=== PATIENT | male | born 1995 | race Caucasian/White ===

== ENCOUNTER 2017-02-19 00:59 | Emergency (ER) | payer MEDICAID ==
[~2017-02-19] VITALS: Ht 177.8 cm; Wt 83.5 kg
[2017-02-19 01:06] VITALS: Ht 177.8 cm; Wt 83.5 kg
[2017-02-19 02:16] VITALS: BP 134/81; PULSE 71; RESP 18; TEMP 98.6
--- NOTE | 2017-02-19 03:37 | ERD ---
ER Documentation Chief Complaint Chief Complaint abd pain right lower right quad x 2 days. HPI Patient is a 21-year-old male who presents with gradual onset, constant, moderate right lower flank pain for 28 hours. He denies vomiting, diarrhea. He denies dysuria or hematuria. He denies migration of pain. He denies fever. ROS All systems reviewed and are negative except as per history of present illness. Allergies Allergies: Coded Allergies: No Known Allergy (Unverified , 02/19/17) PMhx/Soc Past medical history: None Past surgical history: None Social history: Denies tobacco or alcohol Medical and Surgical Hx: pt denies Medical Hx, pt denies Surgical Hx Hx Alcohol Use: No Hx Substance Use: No Hx Tobacco Use: No Smoking Status: Never smoker FmHx Noncontributory Physical Exam Vitals Vital Signs Date Time Temp Pulse Resp B/P Pulse Ox O2 Delivery O2 Flow Rate FiO2 02/19/17 02:16 98.6 71 18 134/81 100 Room Air 02/19/17 01:06 98.5 65 20 148/86 99 Physical Exam Const: Alert, no acute distress Head: Atraumatic Eyes: Normal Conjunctiva, No pallor, no icterus ENT: Normal External Ears, Nose and Mouth. Mucous membranes moist Neck: Full range of motion. Resp: Clear to auscultation bilaterally, No wheezes, no rales Cardio: Regular rate and rhythm, no murmurs Abd: Soft, Nondistended. Tenderness in the right flank. No McBurney's point tenderness. Equivocal rebound no rebound. No guarding. Equivocal right CVA tenderness. No vesicular rash. No paraspinal tenderness. Negative Rovsing sign, negative psoas sign, negative obturator sign. Skin: No petechiae or rashes Back: No midline or flank tenderness Ext: No cyanosis, or edema Neur: Awake and alert, Cranial nerves II through XII intact bilaterally, strength and sensation full in 4 extremities Psych: Normal Mood and Affect Result Diagram: 02/19/17 0343 02/19/17 0341 Results 24 hrs Laboratory Tests Test 02/19/17 02:10 02/19/17 03:41 02/19/17 03:43 Urine Color YELLOW Urine Clarity CLEAR Urine pH 6.0 Urine Specific Harvey 1.020 Urine Ketones NEGATIVEmg/dL Urine Nitrite NEGATIVEmg/dL Urine Bilirubin NEGATIVEmg/dL Urine Urobilinogen 1+mg/dL Urine Leukocyte Esterase NEGATIVELeu/ul Urine Hemoglobin NEGATIVEmg/dL Urine Glucose NEGATIVEmg/dL Urine Total Protein NEGATIVEmg/dl Sodium Level 146mmol/L Potassium Level 3.7mmol/L Chloride Level 105mmol/L Carbon Dioxide Level 30mmol/L Anion Gap 15 Blood Urea Nitrogen 13mg/dl Creatinine 1.07mg/dl Glucose Level 96mg/dl Calcium Level 9.5mg/dl Total Bilirubin 0.6mg/dl Direct Bilirubin 0.00mg/dl Indirect Bilirubin 0.6mg/dl Aspartate Amino Transf (AST/SGOT) 25IU/L Alanine Aminotransferase (ALT/SGPT) 46IU/L Alkaline Phosphatase 85IU/L Total Protein 7.2g/dl Albumin 4.0g/dl Globulin 3.20g/dl Albumin/Globulin Ratio 1.25 White Blood Count 8.710^3/ul Red Blood Count 4.3110^6/ul Hemoglobin 13.1g/dl Hematocrit 39.1% Mean Corpuscular Volume 90.7fl Mean Corpuscular Hemoglobin 30.4pg Mean Corpuscular Hemoglobin Concent 33.5g/dl Red Cell Distribution Width 12.8% Platelet Count 48885^3/UL Mean Platelet Volume 10.9fl Neutrophils % 50.8% Lymphocytes % 36.0% Monocytes % 11.1% Eosinophils % 1.4% Basophils % 0.2% Nucleated Red Blood Cells % 0.0/100WBC Neutrophils # 4.410^3/ul Lymphocytes # 3.110^3/ul Monocytes # 1.010^3/ul Eosinophils # 0.110^3/ul Basophils # 0.010^3/ul Nucleated Red Blood Cells # 0.010^3/ul Procedures/MDM MDM: Patient is a 21-year-old male who presents with 28 hours of right-sided flank pain. He states that he is concerned about appendicitis due to reading on the Internet. He has no tenderness at McBurney's point, no guarding or rebound. He is able to jump up and down without discomfort. He does not have physical exam findings of retrocecal appendicitis. He has a negative urinalysis , no fever, no vomiting, and normal white blood cell count without left shift. I believe that he is low risk for appendicitis. The cause of his pain is not immediately apparent. He was advised to eat a bland diet and to return to the ER for fever, vomiting or worsening pain. He was advised to return in 12 hours if he has ongoing pain for further evaluation given the residual risk of appendicitis. Departure Diagnosis: Primary Impression: Flank pain, acute Condition: MEHUL Ritter MD Feb 19, 2017 03:37
[2017-02-19 04:05] LABS: BASOPHILS % 0.2 % (0.0-2.0); EOSINOPHILS # 0.1 10^3/ul (0.0-0.5); EOSINOPHILS % 1.4 % (0.0-7.0); HEMATOCRIT 39.1 % (42.0-52.0); HEMOGLOBIN 13.1 g/dl (14.0-18.0); LYMPHOCYTES # 3.1 10^3/ul (0.8-2.9); MEAN CORPUSCULAR HEMOGLOBIN 30.4 pg (29.0-33.0); MEAN CORPUSCULAR HGB CONC 33.5 g/dl (32.0-37.0); MEAN CORPUSCULAR VOLUME 90.7 fl (82.0-101.0); MEAN PLATELET VOLUME 10.9 fl (7.4-10.4); MONOCYTES % 11.1 % (0.0-11.0); NEUTROPHIL # 4.4 10^3/ul (1.6-7.5); NEUTROPHILS % 50.8 % (39.0-77.0); PLATELET COUNT 207 10^3/UL (140-415); RED BLOOD COUNT 4.31 10^6/ul (4.70-6.10); RED CELL DISTRIBUTION WIDTH 12.8 % (11.5-14.5); WHITE BLOOD COUNT 8.7 10^3/ul (4.8-10.8)
[2017-02-19 04:31] LABS: ADD UMIC NO; UR ASCORBIC ACID NEGATIVE (NEGATIVE); UR BILIRUBIN (Dip) NEGATIVE (NEGATIVE); UR BLOOD (Dip) NEGATIVE (NEGATIVE); UR CLARITY CLEAR (CLEAR); UR COLOR YELLOW (YELLOW); UR GLUCOSE (Dip) NEGATIVE (NEGATIVE); UR KETONES (Dip) NEGATIVE (NEGATIVE); UR LEUKOCYTE ESTERASE (Dip) NEGATIVE Leu/ul (NEGATIVE); UR NITRITE (Dip) NEGATIVE (NEGATIVE); UR TOTAL PROTEIN (Dip) NEGATIVE (NEGATIVE); UR UROBILINOGEN (Dip) 1+ mg/dL (NEGATIVE)
[2017-02-19 04:39] LABS: ALBUMIN/GLOBULIN RATIO 1.25; BILIRUBIN,INDIRECT 0.6 mg/dl (0-1.1); BILIRUBIN,TOTAL 0.6 mg/dl (0.2-1.3); CALCIUM 9.5 mg/dl (8.4-10.2); CREATININE 1.07 mg/dl (0.61-1.24); POTASSIUM 3.7 mmol/L (3.5-5.1); TOTAL PROTEIN 7.2 g/dl (6.1-8.1)
== END 2017-02-19 05:11 | disposition home or self-care (01) ==
LOC: E/R 00:59
DX: R10.31 Right lower quadrant pain (principal)
CPT/HCPCS: 36415; 80053; 81003; 85025; Z7502; 99283